=== PATIENT | male | born 1935 | race Caucasian/White ===

== ENCOUNTER 2017-02-27 08:42 | Outpatient (RCR) | payer MEDICARE, SELFPAY ==
[2017-02-27 09:55] VITALS: BP 116/51; PULSE 74; RESP 20; BMI 32.4
--- NOTE | 2017-02-27 10:16 | PCM.PN.ID ---
Subjective: Some increased redness of foot last week at wound care visit, but doing well today. Minimal clear drainage. No redness, no swelling. No fever or n/v/d. Off abx since mid January. - Physical Exam General: Alert, Cooperative Lungs: Clear to auscultation, Normal air movement Cardiovascular: No murmurs Abdomen: Soft, Non Tender, Non-Distended Skin: Incision - R foot TMA healing well, no signs of inflammation Vital Signs Pulse Resp BP 74 20 H 116/51 L 02/27/17 09:55 02/27/17 09:55 02/27/17 09:55 Weight: 96.88 kg Body Mass Index (BMI) 32.4 Finger Stick Blood Glucose 111 Route of nutrition/ use of supplements: [] Nutritional Intake: [] IV Site: [] Last Catheter: [] - Assessment/Plan Antibiotics: [] Assessment/Plan: [] R foot osteo now s/p TMA - doing well off of abx. Continue to monitor with wound care, ID available as needed. Thank you, will follow.
--- NOTE | 2017-02-27 14:55 | PCM.WC.PN ---
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 Current Visit: Yes Code(s): L97.512 - Non-pressure chronic ulcer of other part of right foot with fat layer exposed (2) Infection of right foot Status: Chronic Current Visit: Yes Code(s): L08.9 - Local infection of the skin and subcutaneous tissue, unspecified (3) Gangrene due to peripheral vascular disease Status: Resolved Current Visit: Yes Code(s): I96 - Gangrene, not elsewhere classified; I73.9 - Peripheral vascular disease, unspecified Comment: R foot (4) PAD (peripheral artery disease) Status: Chronic Current Visit: Yes Code(s): I73.9 - Peripheral vascular disease, unspecified Comment: s/p right fem-pop bypass graft 10/18/16, multiple stents and angioplasty, left fem to bk pop with ptfe, stent of aorta/iliac arteries (5) Chronic kidney disease (CKD) Status: Chronic Current Visit: Yes Qualifiers: Code(s): N18.9 - Chronic kidney disease, unspecified Comment: Chronic renal failure stage III (6) Osteomyelitis of right foot Status: Resolved Current Visit: No Code(s): M86.9 - Osteomyelitis, unspecified (7) Type 2 diabetes mellitus with diabetic polyneuropathy Status: Chronic Current Visit: Yes Qualifiers: Code(s): E11.42 - Type 2 diabetes mellitus with diabetic polyneuropathy (8) Delayed wound healing Status: Chronic Current Visit: Yes Code(s): T14.8XXD - Other injury of unspecified body region, subsequent encounter Type of Wound Date of Service: 02/27/17 Chief Complaint: Delayed healing at right surgical site with concern of infection History of Wound: Parish is an 81 yo pleasant gentleman who has severe arterial disease. He was previously treated for gangrene and osteomyelitis complicated with diabetic neuropathy and perip. He recently had most of his sutures removed last week. He had some new redness last week in which additional workup was initiated. He is here today for a wound assessment as well as an infectious disease follow-up. He denies fever, chill, nausea, vomiting, loss of appetite. His pain is controlled. He is with his family today. Resides at [facility] at this time. Progress of Wound: Stable - Physical Exam Vital Signs Pulse Resp BP 74 20 H 116/51 L 02/27/17 09:55 02/27/17 09:55 02/27/17 09:55 General: Alert, Oriented x3, Cooperative, Lethargic Extremities: No cyanosis, Capillary Refill Less than 3 Seconds - To the plantar and dorsal transmetatarsal amputation stump site, No Calf Tenderness - negative Jimenez and Gibbons sign right lower extremity, Diminished Peripheral Pulses, Edema - Mild right and decreased to surgical site Skin: Ulcer/ Wound - Most the incision site is healed there is some gapping with subcutaneous tissue exposed without maceration, purulence, odor, no necrosis, or exposed deep tissue. The erythema from last week has resolved. His skin is atrophic and hairless to the right lower extremity. There is no tension on the amputation stump site. Hematogenous drainage only on light debridement. Wound Measurements and Assessment - Nurse 1 - General Ulcer Measurement Start: 02/27/17 09:54 Freq: Status: Active Protocol: Activity Type Activity Date Activity User E-Sign Co-Sign Detail Recorded Client Recorded Date Recorded By Document 02/27/17 09:55 [id number] 02/27/17 10:07 DL 02/27/17 09:55 Wound Center Nurse 1 [Ulcer Assessment Protocol: ADAM.WD.LOC] #9 R-TMA SUTURE LINE -Combined with other wound No -Current Size (cm) - Length 0.1 -Current Size (cm) - Width 10.4 -Current Size (cm) - Depth 0.1 -Total Square Cm 1.04 -Date of Last Picture (Recall this 02/27/17 field) -Photo Taken Yes -Epithelialization Small 1-33% -Tunneling No -Undermining/Tunneling No -Circular Undermining No -Change in Wound Grade/Stage No Query Text:If change please identify the Stage/Grade in the comment (ie. S2 G3) -Exudate Amt Small (1-33%) -Exudate Type Serous -Wound Margin Distinct, Outline Attached -Granulation Amt None Present (0 %) -Granulation Quality N/A -Slough/Fibrin Yes -Necrosis Amt None Present (0 %) -Necrotic Tissue Type Adherent Slough -Structure Exposed N/A -Texture (Loren-wound Skin Appearance) No Abnormality -Moisture (Loren-wound Skin Appearance No Abnormality ) -Color (Loren-wound Skin Appearance) No Abnormality -Temperature (Loren-wound Skin No Abnormality Appearance) (Pt Warm) -Tenderness on Palpation (Loren-wound No Skin Appearance) -Ulcer Cleansing Rinsed/ Irrigated with Saline -Foul Odor after Cleansing No -Anesthetic Used 4% Lidocaine Solution - Nurse 2 - General Ulcer CM Notes Start: 02/27/17 09:54 Freq: Status: Active Protocol: Activity Type Activity Date Activity User E-Sign Co-Sign Detail Recorded Client Recorded Date Recorded By Document 02/27/17 10:24 [id number] 02/27/17 10:30 02/27/17 10:24 Wound Center Nurse 2 [Procedure/Treatment] -Time 10:27 -Correct Patient Yes -Correct Side, Site, Position Yes -Correct Procedure Yes -Procedure Performed Yes -Type of Procedure Debridement -Clinical Debridement Selective -Post Debridement Size (cm) - Length 0.5 -Post Debridement Size (cm) - Width 10.0 -Post Debridement Size (cm) - Depth 0.2 -Total Square Cm 5.00 -Wound/Ulcer Outcome Amputation -Ulcer Cleansing Rinsed/ Irrigated with Saline -Foul Odor after Cleansing No -Bioengineered Tissue No -Cetacaine [place] No -Bleeding Controlled with Pressure -Treatment Response Procedure Tolerated Well [See Physician Procedure note for Specifics] Pain Scale: 0-10 Numeric [Pain] -Is Patient Pain Free? Yes Musculoskeletal: No Tenderness to Palpation of Joints or Extremities, Muscle Wasting, - - Right transmetatarsal amputation stump site Neurological: - - Lack of epicritic sensation light touch right lower extremity Psych/Mental Status: Normal Affect, Appropriate Debridement Note Post-Debridement Measurements/Treatment - Nurse 2 - General Ulcer CM Notes Start: 02/27/17 09:54 Freq: Status: Active Protocol: Activity Type Activity Date Activity User E-Sign Co-Sign Detail Recorded Client Recorded Date Recorded By Document 02/27/17 10:24 [id number] [id number] 02/27/17 10:30 02/27/17 10:24 Wound Center Nurse 2 #9 R-TMA SUTURE LINE -Time 10:27 -Correct Patient Yes -Correct Side, Site, Position Yes -Correct Procedure Yes -Procedure Performed Yes -Type of Procedure Debridement -Clinical Debridement Selective -Post Debridement Size (cm) - Length 0.5 -Post Debridement Size (cm) - Width 10.0 -Post Debridement Size (cm) - Depth 0.2 -Total Square Cm 5.00 -Wound/Ulcer Outcome Amputation -Ulcer Cleansing Rinsed/ Irrigated with Saline -Foul Odor after Cleansing No -Bioengineered Tissue No -Cetacaine [place] No -Bleeding Controlled with Pressure -Treatment Response Procedure Tolerated Well Pain Scale: 0-10 Numeric Is Patient Pain Free? 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 Right foot ulcer with fat exposed. Diabetes neuropathy. Peripheral vascular disease, on chronic anticoagulation medication. Malnutrition suspected. Delayed healing. Chronic kidney disease. History of anemia. other comorbidities. Limited ambulation Plan: Evaluated and reviewed patient and his history. Debridement was not performed today to the foot. Debridement was performed to the right foot as noted in the clinical panel. To apply Lindsey to the open sites and change every 3 days; an order was placed to the nursing staff at [facility]. Steri-Strips were applied to further decrease tension to this site and the remaining sutures are removed with out difficulty. Infectious disease was also in clinic today and performed an evaluation. We both do not recommend additional antibiotics. He did have some rubor and redness last week and we are suspecting this may have been a cold injury because his family reports he did not have it covered while he was transported into the building. We did review this today and advised him to avoid this because he is high risk for frostbite and further limb loss. Okay to continue with light compression with Tubigrip; his leg does not appear to be overtly swollen today. To continue wheelchair use while ambulating community. It is okay to heal weight-bear for transfers to a surgical limb. To continue with nutritional supplementation, Kameron, to optimize timely healing. To follow-up with vascular surgery as advised. It is noted he had previous intervention with Dr. Scanlon. To return to the wound care center in 1 week or call sooner if any problems questions or concerns. It is also noted at his last visit at the foot and ankle center, I ordered laboratory values and updated x-rays. I have not seen the results for this yet and continue to work on obtaining these from [facility]. These will be requested again.
--- NOTE | 2017-02-27 15:02 | PN.PCM_ITS ---
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 Current Visit: Yes Code(s): L97.512 - Non-pressure chronic ulcer of other part of right foot with fat layer exposed (2) Infection of right foot Status: Chronic Current Visit: Yes Code(s): L08.9 - Local infection of the skin and subcutaneous tissue, unspecified (3) Gangrene due to peripheral vascular disease Status: Resolved Current Visit: Yes Code(s): I96 - Gangrene, not elsewhere classified; I73.9 - Peripheral vascular disease, unspecified Comment: R foot (4) PAD (peripheral artery disease) Status: Chronic Current Visit: Yes Code(s): I73.9 - Peripheral vascular disease, unspecified Comment: s/p right fem-pop bypass graft 10/18/16, multiple stents and angioplasty, left fem to bk pop with ptfe, stent of aorta/ iliac arteries (5) Chronic kidney disease (CKD) Status: Chronic Current Visit: Yes Qualifiers: Code(s): N18.9 - Chronic kidney disease, unspecified Comment: Chronic renal failure stage III (6) Osteomyelitis of right foot Status: Resolved Current Visit: No Code(s): M86.9 - Osteomyelitis, unspecified (7) Type 2 diabetes mellitus with diabetic polyneuropathy Status: Chronic Current Visit: Yes Qualifiers: Code(s): E11.42 - Type 2 diabetes mellitus with diabetic polyneuropathy (8) Delayed wound healing Status: Chronic Current Visit: Yes Code(s): T14.8XXD - Other injury of unspecified body region, subsequent encounter Type of Wound Date of Service: 02/27/17 Chief Complaint: Delayed healing at right surgical site with concern of infection History of Wound: Parish is an 81 yo pleasant gentleman who has severe arterial disease. He was previously treated for gangrene and osteomyelitis complicated with diabetic neuropathy and perip. He recently had most of his sutures removed last week. He had some new redness last week in which additional workup was initiated. He is here today for a wound assessment as well as an infectious disease follow-up. He denies fever, chill, nausea, vomiting, loss of appetite. His pain is controlled. He is with his family today. Resides at [facility] at this time. Progress of Wound: Stable - Physical Exam Vital Signs Pulse Resp BP 74 20 H 116/51 L 02/27/17 09:55 02/27/17 09:55 02/27/17 09:55 General: Alert, Oriented x3, Cooperative, Lethargic Extremities: No cyanosis, Capillary Refill Less than 3 Seconds - To the plantar and dorsal transmetatarsal amputation stump site, No Calf Tenderness - negative Jimenez and Gibbons sign right lower extremity, Diminished Peripheral Pulses, Edema - Mild right and decreased to surgical site Skin: Ulcer/ Wound - Most the incision site is healed there is some gapping with subcutaneous tissue exposed without maceration, purulence, odor, no necrosis, or exposed deep tissue. The erythema from last week has resolved. His skin is atrophic and hairless to the right lower extremity. There is no tension on the amputation stump site. Hematogenous drainage only on light debridement. Wound Measurements and Assessment - Nurse 1 - General Ulcer Measurement Start: 02/27/17 09:54 Freq: Status: Active Protocol: Activity Type Activity Date Activity User E-Sign Co-Sign Detail Recorded Client Recorded Date Recorded By Document 02/27/17 09:55 [id number] 02/27/17 10:07 DL 02/27/17 09:55 Wound Center Nurse 1 [Ulcer Assessment Protocol: ADAM.WD.LOC] #9 R-TMA SUTURE LINE -Combined with other wound No -Current Size (cm) - Length 0.1 -Current Size (cm) - Width 10.4 -Current Size (cm) - Depth 0.1 -Total Square Cm 1.04 -Date of Last Picture (Recall this 02/27/17 field) -Photo Taken Yes -Epithelialization Small 1-33% -Tunneling No -Undermining/Tunneling No -Circular Undermining No -Change in Wound Grade/Stage No Query Text:If change please identify the Stage/Grade in the comment (ie. S2 G3) -Exudate Amt Small (1-33%) -Exudate Type Serous -Wound Margin Distinct, Outline Attached -Granulation Amt None Present (0 %) -Granulation Quality N/A -Slough/Fibrin Yes -Necrosis Amt None Present (0 %) -Necrotic Tissue Type Adherent Slough -Structure Exposed N/A -Texture (Loren-wound Skin Appearance) No Abnormality -Moisture (Loren-wound Skin Appearance No Abnormality ) -Color (Loren-wound Skin Appearance) No Abnormality -Temperature (Loren-wound Skin No Abnormality Appearance) (Pt Warm) -Tenderness on Palpation (Loren-wound No Skin Appearance) -Ulcer Cleansing Rinsed/ Irrigated with Saline -Foul Odor after Cleansing No -Anesthetic Used 4% Lidocaine Solution - Nurse 2 - General Ulcer CM Notes Start: 02/27/17 09:54 Freq: Status: Active Protocol: Activity Type Activity Date Activity User E-Sign Co-Sign Detail Recorded Client Recorded Date Recorded By Document 02/27/17 10:24 [id number] 02/27/17 10:30 02/27/17 10:24 Wound Center Nurse 2 [Procedure/Treatment] -Time 10:27 -Correct Patient Yes -Correct Side, Site, Position Yes -Correct Procedure Yes -Procedure Performed Yes -Type of Procedure Debridement -Clinical Debridement Selective -Post Debridement Size (cm) - Length 0.5 -Post Debridement Size (cm) - Width 10.0 -Post Debridement Size (cm) - Depth 0.2 -Total Square Cm 5.00 -Wound/Ulcer Outcome Amputation -Ulcer Cleansing Rinsed/ Irrigated with Saline -Foul Odor after Cleansing No -Bioengineered Tissue No -Cetacaine [place] No -Bleeding Controlled with Pressure -Treatment Response Procedure Tolerated Well [See Physician Procedure note for Specifics] Pain Scale: 0-10 Numeric [Pain] -Is Patient Pain Free? Yes Musculoskeletal: No Tenderness to Palpation of Joints or Extremities, Muscle Wasting, - - Right transmetatarsal amputation stump site Neurological: - - Lack of epicritic sensation light touch right lower extremity Psych/Mental Status: Normal Affect, Appropriate Debridement Note Post-Debridement Measurements/Treatment - Nurse 2 - General Ulcer CM Notes Start: 02/27/17 09:54 Freq: Status: Active Protocol: Activity Type Activity Date Activity User E-Sign Co-Sign Detail Recorded Client Recorded Date Recorded By Document 02/27/17 10:24 [id number] [id number] 02/27/17 10:30 02/27/17 10:24 Wound Center Nurse 2 #9 R-TMA SUTURE LINE -Time 10:27 -Correct Patient Yes -Correct Side, Site, Position Yes -Correct Procedure Yes -Procedure Performed Yes -Type of Procedure Debridement -Clinical Debridement Selective -Post Debridement Size (cm) - Length 0.5 -Post Debridement Size (cm) - Width 10.0 -Post Debridement Size (cm) - Depth 0.2 -Total Square Cm 5.00 -Wound/Ulcer Outcome Amputation -Ulcer Cleansing Rinsed/ Irrigated with Saline -Foul Odor after Cleansing No -Bioengineered Tissue No -Cetacaine [place] No -Bleeding Controlled with Pressure -Treatment Response Procedure Tolerated Well Pain Scale: 0-10 Numeric Is Patient Pain Free? 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 Right foot ulcer with fat exposed. Diabetes neuropathy. Peripheral vascular disease, on chronic anticoagulation medication. Malnutrition suspected. Delayed healing. Chronic kidney disease. History of anemia. other comorbidities. Limited ambulation Plan: Evaluated and reviewed patient and his history. Debridement was not performed today to the foot. Debridement was performed to the right foot as noted in the clinical panel. To apply Lindsey to the open sites and change every 3 days; an order was placed to the nursing staff at [facility]. Steri-Strips were applied to further decrease tension to this site and the remaining sutures are removed with out difficulty. Infectious disease was also in clinic today and performed an evaluation. We both do not recommend additional antibiotics. He did have some rubor and redness last week and we are suspecting this may have been a cold injury because his family reports he did not have it covered while he was transported into the building. We did review this today and advised him to avoid this because he is high risk for frostbite and further limb loss. Okay to continue with light compression with Tubigrip; his leg does not appear to be overtly swollen today. To continue wheelchair use while ambulating community. It is okay to heal weight-bear for transfers to a surgical limb. To continue with nutritional supplementation, Kameron, to optimize timely healing. To follow-up with vascular surgery as advised. It is noted he had previous intervention with Dr. Scanlon. To return to the wound care center in 1 week or call sooner if any problems questions or concerns. It is also noted at his last visit at the foot and ankle center, I ordered laboratory values and updated x-rays. I have not seen the results for this yet and continue to work on obtaining these from [facility]. These will be requested again.
== END 2017-03-03 23:59 ==
LOC: WC 08:42
PROVIDERS: Family Provider Internal Medicine Infectious Disease; PCP Internal Medicine Infectious Disease; Visit Provider Podiatrist
DX: E11.621 Type 2 diabetes mellitus with foot ulcer (principal); E11.52 Type 2 diabetes mellitus with diabetic peripheral angiopathy with gangrene; I96 Gangrene, not elsewhere classified; E11.22 Type 2 diabetes mellitus with diabetic chronic kidney disease; I12.9 Hypertensive chronic kidney disease with stage 1 through stage 4 chronic kidney disease, or unspecified chronic kidney disease; N18.3 Chronic kidney disease, stage 3 (moderate); E11.42 Type 2 diabetes mellitus with diabetic polyneuropathy; R60.0 Localized edema; R09.89 Other specified symptoms and signs involving the circulatory and respiratory systems; Z89.431 Acquired absence of right foot; Z79.01 Long term (current) use of anticoagulants; L97.512 Non-pressure chronic ulcer of other part of right foot with fat layer exposed
CPT/HCPCS: 97597; 99213; G0463

== ENCOUNTER 2017-03-27 11:00 | Outpatient (RCR) | payer MEDICARE, SELFPAY ==
[2017-03-04 01:45] VITALS: BP 116/51; PULSE 74; RESP 20; BMI 32.4
[2017-03-27 11:12] VITALS: BP 112/82; PULSE 82; RESP 16; TEMP 36.9; BMI 32.4
--- NOTE | 2017-03-27 15:39 | PN.PCM_ITS ---
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 Code(s): L97.512 - Non-pressure chronic ulcer of other part of right foot with fat layer exposed (3) Delayed wound healing Status: Chronic Code(s): T14.8XXD - Other injury of unspecified body region, subsequent encounter (4) PAD (peripheral artery disease) Status: Chronic Code(s): I73.9 - Peripheral vascular disease, unspecified Comment: s/p right fem-pop bypass graft 10/18/16, multiple stents and angioplasty , left fem to bk pop with ptfe, stent of aorta/iliac arteries (5) Chronic kidney disease (CKD) Status: Chronic Qualifiers: Code(s): N18.9 - Chronic kidney disease, unspecified Comment: Chronic renal failure stage III (6) Type 2 diabetes mellitus with diabetic polyneuropathy Status: Chronic Qualifiers: Code(s): E11.42 - Type 2 diabetes mellitus with diabetic polyneuropathy Type of Wound Date of Service: 03/30/17 Chief Complaint: Delayed healing at right surgical site with concern of infection. Left foot fourth toe injury History of Wound: Parish is an 81 yo pleasant gentleman who has severe arterial disease. He was previously treated for gangrene and osteomyelitis complicated with diabetic neuropathy and peripheral vascular disease. He denies fever, chill, nausea, vomiting, loss of appetite. His pain is controlled. He is with his family today. Resides at [facility] at this time. He had a new injury where his left toenail was skived and with bleeding was noted. He denies other injuries to his foot. Pressure was applied and a dressing was applied. Progress of Wound: Stable. New toenail injury left foot - Physical Exam Vital Signs Temp Pulse Resp BP 98.4 F 82 16 112/82 H 03/27/17 11:12 03/27/17 11:12 03/27/17 11:12 03/27/17 11:12 General: Alert, Oriented x3, Cooperative Extremities: No cyanosis, Capillary Refill Less than 3 Seconds - Less than 4 seconds left foot less than 3 seconds the dorsal and plantar flap of the right foot transmetatarsal amputation site, No Calf Tenderness - Negative Jimenez and Gibbons sign bilateral, Diminished Peripheral Pulses, Edema - Mild bilateral, - - Right transmetatarsal amputation Skin: Ulcer/ Wound - No purulence, no erythema, no streaking, no odor, no infection bilateral. Scant opening at the previous metatarsal amputation site with granular fibrosis tissue. No exposed bone. There is loosening of the left fourth toenail with hematogenous drainage upon removal/nail avulsion there is no nailbed laceration, necrosis, or infection. His hemostasis was controlled. Wound Measurements and Assessment - Nurse 1 - General Ulcer Measurement Start: 03/06/17 13:11 Freq: Status: Active Protocol: Activity Type Activity Date Activity User E-Sign Co-Sign Detail Recorded Client Recorded Date Recorded By Document 03/27/17 11:12 DL [id number] 03/27/17 11:32 DL 03/27/17 11:12 Wound Center Nurse 1 [Ulcer Assessment Protocol: WC.WD.LOC] #10 L #rd toe -Current Size (cm) - Length 2.2 -Current Size (cm) - Width 1.4 -Current Size (cm) - Depth 0.1 -Total Square Cm 3.08 -Photo Taken Yes -Exudate Amt Small (1-33%) -Exudate Type Serosanguineous -Wound Margin Indistinct, Non -Visible -Granulation Amt Small (1-33%) -Granulation Quality Red -Necrosis Amt None Present (0 %) -Structure Exposed N/A -Texture (Loren-wound Skin Appearance) Localized Edema -Moisture (Loren-wound Skin Appearance No Abnormality ) -Color (Loren-wound Skin Appearance) Erythema -Temperature (Loren-wound Skin No Abnormality Appearance) (Pt Warm) -Tenderness on Palpation (Loren-wound No Skin Appearance) -Ulcer Cleansing Wound Cleanser -Anesthetic Used 4% Lidocaine Solution #9 R-TMA SUTURE LINE -Current Size (cm) - Length 5.5 -Current Size (cm) - Width 0.2 -Current Size (cm) - Depth 0.8 -Total Square Cm 1.10 -Photo Taken No -Exudate Amt Small (1-33%) -Exudate Type Serosanguineous -Wound Margin Distinct, Outline Attached -Granulation Amt Small (1-33%) -Granulation Quality [place] -Necrosis Amt Small (1-33%) -Necrotic Tissue Type Adherent Slough -Structure Exposed N/A -Texture (Loren-wound Skin Appearance) No Abnormality -Moisture (Loren-wound Skin Appearance Dry/Scaly ) -Color (Loren-wound Skin Appearance) No Abnormality -Temperature (Loren-wound Skin No Abnormality Appearance) (Pt Warm) -Tenderness on Palpation (Loren-wound No Skin Appearance) -Ulcer Cleansing Wound Cleanser -Foul Odor after Cleansing No -Anesthetic Used 4% Lidocaine Solution - Nurse 2 - General Ulcer CM Notes Start: 03/06/17 13:11 Freq: Status: Active Protocol: Activity Type Activity Date Activity User E-Sign Co-Sign Detail Recorded Client Recorded Date Recorded By Document 03/27/17 12:15 KALEIGH [id number] 03/27/17 12:18 KALEIGH 03/27/17 12:15 Wound Center Nurse 2 [Procedure/Treatment] #10 L #rd toe -Correct Patient No -Correct Side, Site, Position No -Correct Procedure No -Procedure Performed No #9 R-TMA SUTURE LINE -Time 12:15 -Correct Patient Yes -Correct Side, Site, Position Yes -Correct Procedure Yes -Procedure Performed Yes -Type of Procedure Debridement -Clinical Debridement Subcutaneous -Post Debridement Size (cm) - Length 5.5 -Post Debridement Size (cm) - Width 0.3 -Post Debridement Size (cm) - Depth 0.8 -Total Square Cm 1.65 -Wound/Ulcer Outcome Not Healed -Ulcer Cleansing Rinsed/ Irrigated with Saline -Foul Odor after Cleansing No -Bioengineered Tissue No -Cetacaine [place] No -Bleeding Controlled with Pressure -Treatment Response Procedure Tolerated Well [See Physician Procedure note for Specifics] Pain Scale: 0-10 Numeric [Pain] -Is Patient Pain Free? Yes Musculoskeletal: No Tenderness to Palpation of Joints or Extremities, Muscle Wasting, Tenderness - Very minimal pain on palpation to loose left fourth toe digit nail, - - Dorsal contraction of lesser digit left foot Neurological: - - Lack of epicritic sensation to light touch bilateral Psych/Mental Status: Normal Affect, Appropriate Debridement Note Post-Debridement Measurements/Treatment - Nurse 2 - General Ulcer CM Notes Start: 03/06/17 13:11 Freq: Status: Active Protocol: Activity Type Activity Date Activity User E-Sign Co-Sign Detail Recorded Client Recorded Date Recorded By Document 03/27/17 12:15 [id number] 03/27/17 12:18 03/27/17 12:15 Wound Center Nurse 2 #10 L #rd toe -Correct Patient No -Correct Side, Site, Position No -Correct Procedure No -Procedure Performed No #9 R-TMA SUTURE LINE -Time 12:15 -Correct Patient Yes -Correct Side, Site, Position Yes -Correct Procedure Yes -Procedure Performed Yes -Type of Procedure Debridement -Clinical Debridement Subcutaneous -Post Debridement Size (cm) - Length 5.5 -Post Debridement Size (cm) - Width 0.3 -Post Debridement Size (cm) - Depth 0.8 -Total Square Cm 1.65 -Wound/Ulcer Outcome Not Healed -Ulcer Cleansing Rinsed/ Irrigated with Saline -Foul Odor after Cleansing No -Bioengineered Tissue No -Cetacaine [place] No -Bleeding Controlled with Pressure -Treatment Response Procedure Tolerated Well Pain Scale: 0-10 Numeric Is Patient Pain Free? Yes Wound debrided: Stump site Laterality: Right Wound Grade/Stage: Grade 1 Type of Debridement: Excisional debridement Anesthesia Used: 4% Lidocaine Solution Depth: in the subcutaneous layer Percentage of wound debrided: 100 Instrument Used: #15 blade Tissue Removed: Fibrous, devitalized subcutaneous, biofilm, slough Severity: Fat Layer Exposed Amount of bleeding with debridement: Mild Bleeding Controlled with: Pressure Patient tolerated procedure well Assessment/Plan Assessment: Status post right transmetatarsal amputation with delayed healing for treatment of gangrene of right great toe and 5th toe with additional osteomyelitis. Right foot ulcer with fat exposed. Subungual hematoma with follicle lysis left fourth toe-no infection. Diabetes neuropathy. Peripheral vascular disease, on chronic anticoagulation medication. Malnutrition suspected. Delayed healing. Chronic kidney disease. History of anemia. other comorbidities. Limited ambulation Plan: Evaluated and reviewed patient and his history. Debridement was not performed today to the foot. Debridement was performed to the right foot as noted in the clinical panel. To apply Lindsey to the open sites and change every 3 days; an order was placed to the nursing staff at [facility]. Okay to continue with light compression with Tubigrip; his leg does not appear to be overtly swollen today. To continue wheelchair use while ambulating community. It is okay to heal weight-bear for transfers to a surgical limb. To continue with nutritional supplementation, K[place]on, to optimize timely healing. To follow- up with vascular surgery as advised. It is noted he had previous intervention with Dr. Scanlon. To return to the wound care center in 1 week or call sooner if any problems questions or concerns. Approximately 2 cc of 1% lidocaine plain was administered to the left fourth toe with typical digital block fashion. Anesthesia was achieved. Verbal consent was obtained for nail avulsion site to decompress his subungual hematoma. This was performed gently with a hemostat was removed in total. The nailbed was evaluated without signs of infection, necrosis, or laceration or deeper injury appreciated. Pressure was applied to maintain hemostasis. A dressing of Lindsey and gauze were applied. To change at the same time the contralateral limb is changed. I also recommended surgical shoe use to keep pressure off the site and this was dispensed today. The device was also properly fitted to the patient and he understands use.
== END 2017-04-03 23:59 ==
LOC: WC 11:00
PROVIDERS: Family Provider Internal Medicine Infectious Disease; PCP Internal Medicine Infectious Disease; Visit Provider Podiatrist
DX: E11.621 Type 2 diabetes mellitus with foot ulcer (principal); E11.42 Type 2 diabetes mellitus with diabetic polyneuropathy; L97.512 Non-pressure chronic ulcer of other part of right foot with fat layer exposed; E11.51 Type 2 diabetes mellitus with diabetic peripheral angiopathy without gangrene; E11.22 Type 2 diabetes mellitus with diabetic chronic kidney disease; N18.3 Chronic kidney disease, stage 3 (moderate)
CPT/HCPCS: 11042; 11730

== ENCOUNTER 2017-05-01 10:30 | Outpatient (RCR) | payer MEDICARE, SELFPAY ==
[2017-03-27 11:12] VITALS: BP 112/82
[2017-04-04 00:59] VITALS: PULSE 82; RESP 16; TEMP 36.9
== END 2017-05-01 23:59 ==
LOC: WC 10:30
PROVIDERS: Family Provider Internal Medicine Infectious Disease; PCP Internal Medicine Infectious Disease; Visit Provider Podiatrist
DX: Z09 Encounter for follow-up examination after completed treatment for conditions other than malignant neoplasm (principal)